=== PATIENT | female | born 1965 | race Caucasian/White ===

== ENCOUNTER 2021-02-05 18:15 | Emergency (ER) | payer BC, MEDICAID, OTHER ==
--- NOTE | 2021-02-05 21:09 | EDM.PDOC ---
ED HPI GENERAL MEDICAL PROBLEM - General Chief Complaint: Drug or Alcohol Abuse Stated Complaint: etoh Time Seen by Provider: 02/05/21 18:20 - History of Present Illness INITIAL COMMENTS - FREE TEXT/NARRATIVE: Pt comes in by ambulance with C/O dizziness that happened tonite. She tells me it has happened many times over the last 6 months or so. She was in [place] 2 weeks ago and ended up in the ER for this but nothing was found. She was seen last at [facility] and a ZIO patch was applied and labs were done. The episodes only last for a few seconds, but can happen 3-4 times a day, or not for a few days. She tells me she has been drinking alcohol today, and does on most days. No chest pain, SOB, or coughing. 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 Musculoskeletal History: Reports: Fracture Other Musculoskeletal History: Broke back 7 years ago, no surgery only back brace Neurological History: Reports: None Psychiatric History: Reports: Depression Other Psychiatric History: Takes Prozac Endocrine/Metabolic History: Reports: Other (See Below) Other Endocrine/Metabolic History: Hypoglycemia Hematologic History: Reports: None Immunologic History: Reports: None Oncologic (Cancer) History: Reports: None Dermatologic History: Reports: None - Past Surgical History Head Surgeries/Procedures: Reports: None HEENT Surgical History: Reports: None Cardiovascular Surgical History: Reports: Other (See Below) Other Cardiovascular Surgeries/Procedures: Cardiac Cath 3 years ago Respiratory Surgical History: Reports: None GI Surgical History: Reports: None, Appendectomy Female Surgical History: Reports: None Endocrine Surgical History: Reports: None Neurological Surgical History: Reports: None Musculoskeletal Surgical History: Reports: None Oncologic Surgical History: Reports: None Dermatological Surgical History: Reports: None Social & Family History - Tobacco Use Tobacco Use Status *Q: Never Tobacco User Second Hand Smoke Exposure: No - Caffeine Use Caffeine Use: Reports: Coffee Other Caffeine Use: couple cups a day - Alcohol Use Days Per Week of Alcohol Use: 7 Number of Drinks Per Day: 3 Total Drinks Per Week: 21 Date of Last Drink: 02/05/21 Time of Last Drink: 17:00 - Recreational Drug Use Recreational Drug Use: No ED ROS GENERAL - Review of Systems Review Of Systems: Comprehensive ROS is negative, except as noted in HPI. Neurological: Reports: Dizziness ED EXAM, GENERAL - Physical Exam Exam: See Below Eye Exam: Bilateral Eye: EOMI, PERRL #1 Interpretation EKG Date: 02/05/21 Time: 17:00 Rhythm: NSR (NSR at this time.) Course - Orders/Labs/Meds Orders: Active Orders 24 hr Category Date Time Status Chest 1V Frontal [CR] Stat Exams 02/05/21 18:56 Taken Labs: Laboratory Tests 02/05/21 02/05/21 02/05/21 Range/Units 18:56 18:56 19:00 WBC 4.7 (4.0-11.0) K/uL RBC 4.60 (3.80-5.80) M/uL Hgb 14.2 (11.5-16.5) g/dL Hct 43.0 (37.0-47.0) % MCV 94 (76-96) fL MCH 30.9 (27.0-32.0) pg MCHC 33.0 (31.0-35.0) g/dL RDW 13.2 (11.0-16.0) % Plt Count 287 (150-500) K/uL MPV 9.7 (6.0-10.0) fL Neut % (Auto) 57.3 (45.0-70.0) % Lymph % (Auto) 35.1 (20.0-40.0) % Swisher % (Auto) 5.1 (3.0-10.0) % Eos % (Auto) 1.9 (1.0-5.0) % Baso % (Auto) 0.6 H (0.0-0.5) % Neut # (Auto) 2.71 (2.00-7.50) K/uL Lymph # (Auto) 1.66 (1.50-4.00) K/uL Swisher # (Auto) 0.24 (0.20-0.80) K/uL Eos # (Auto) 0.09 (0.04-0.40) K/uL Baso # (Auto) 0.03 (0.02-0.10) K/uL Sodium 142 (136-145) mmol/L Potassium 3.6 (3.5-5.1) mmol/L Chloride 106 (98-107) mmol/L Carbon Dioxide 26.3 (21.0-32.0) mmol/L Anion Gap 13.3 (5.0-15.0) mmol/L BUN 10 D (8-26) mg/dL Creatinine 0.66 D (0.55-1.02) mg/dL Est Cr Clr Drug Dosing TNP Estimated GFR (MDRD) > 60 (>60) MLS/MIN BUN/Creatinine Ratio 15.2 (6-25) Glucose 91 (74-100) mg/dL Calcium 8.5 (8.5-10.1) mg/dL Total Bilirubin 0.2 D (0.0-1.0) mg/dL AST 17 (15-37) U/L ALT 30 (12-78) U/L Alkaline Phosphatase 49 (46-116) U/L Troponin I < 0.017 (0.000-0.060) ng/mL Total Protein 7.3 (6.4-8.2) g/dL Albumin 3.6 (3.4-5.0) g/dL Globulin 3.7 (2.2-4.2) g/dL Albumin/Globulin Ratio 1.0 (0.8-2.0) Urine Color Yellow Urine Appearance Clear (CLEAR) Urine pH 5.5 (5.0-8.0) Ur Specific Badger <= 1.005 (1.003-1.030) Urine Protein Negative (NEGATIVE) mg/dL Urine Glucose (UA) Negative (NEGATIVE) mg/dL Urine Ketones Negative (NEGATIVE) mg/dL Urine Occult Blood Negative (NEGATIVE) Urine Nitrite Negative (NEGATIVE) Urine Bilirubin Negative (NEGATIVE) Urine Urobilinogen 0.2 (0.2-1.0) E.U./dL Ur Leukocyte Esterase Small H (NEGATIVE) Urine RBC Not Reportable Urine WBC 0-5 H /HPF Ur Epithelial Cells Few /HPF Ethyl Alcohol 216.0 H (<3.0) mg/dL - Re-Assessments/Exams Free Text/Narrative Re-Assessment/Exam: 02/05/21 21:10 Labs are ok. ETOH is 216. While waiting for labs she had a short run of V-Tach for about 3-4 seconds on the monitor. She felt different and could not talk for just a couple seconds. EKG shows a NSR again. I did consult Dr Mcodnald, [place] [facility] from [facility]. She should follow up with her PCP for further workup. Her labs are nml, and she tells me her PCP did check her Thyroid last week with lab work. She needs to refrain from alcohol until this is resolved. She admits to daily alcohol use. Departure - Departure Time of Disposition: 21:10 Disposition: Home, Self-Care 01 Condition: Good Clinical Impression: Alcohol abuse Abnormal heart rhythm Qualifiers: Arrhythmia type: ventricular tachycardia Qualified Code(s): I47.2 - Ventricular tachycardia Referrals: PCP,None [Primary Care Provider] - Additional Instructions: I did consult Dr Mcdonald, [place] Operator from [facility]. Pt will follow up by phone tomorrow with her PCP at [facility]. She currently has a ZIO patch. This should have captured the V-Tach. She will need further workup scheduled, including an Echo. She is not to drink alcohol until this has been resolved. Sepsis Event Note (ED) - Evaluation Sepsis Screening Result: No Definite Risk - My Orders Last 24 Hours: My Active Orders 02/05/21 18:56 Chest 1V Frontal [CR] Stat - Assessment/Plan Last 24 Hours: My Active Orders 02/05/21 18:56 Chest 1V Frontal [CR] Stat
--- NOTE | 2021-02-06 09:57 | CR ---
Date of Service: 02/05/21 Clinical Data: dizziness. PORTABLE CHEST: No priors. The patient has taken a poor inspiration. The heart size is normal. There are minimal atelectatic changes in the left lung base. The lungs are otherwise clear. No pneumothorax. No pleural effusions. [id number] MTDD
== END 2021-02-05 21:00 | disposition home or self-care (01) ==
LOC: LB.ED 18:15
DX: F10.10 Alcohol abuse, uncomplicated (principal); I47.2 Ventricular tachycardia; Y90.7 Blood alcohol level of 200-239 mg/100 ml
CPT/HCPCS: 36415; 71045; 80053; 80307; 81001; 84484; 85025; 93005; 99284; A0425; A0429

== ENCOUNTER 2021-08-02 20:25 | Emergency (ER) | payer OTHER ==
[2021-08-02] MEDS ORDERED: Sodium Chloride 0.9% 1,000 ML IV ONE (20:36)
[2021-08-02] MEDS ORDERED: Sodium Chloride 0.9% 1,000 ML IV SCH (22:00)
[2021-08-02] MEDS ORDERED: Acetaminophen 325 MG Tab PO ONE (22:14)
[2021-08-02 23:43] VITALS: BP 120/67; PULSE 70
== END 2021-08-02 23:46 | disposition home or self-care (01) ==
LOC: LB.ED 20:25
DX: F10.129 Alcohol abuse with intoxication, unspecified (principal)
CPT/HCPCS: 36415; 80053; 80307; 85025; 93010; 96360; 96361; 99284; 99285; A9270; J7030; 93005; A0425; A0429

== ENCOUNTER 2022-10-02 21:03 | Emergency (ER) | payer MEDICAID ==
[2022-10-02] MEDS ORDERED: Sodium Chloride 0.9% 10 ML Syringe FLUSH PRN (21:37)
[2022-10-02 21:56] LABS: HEMATOCRIT 41.3 % (37.0-47.0); HEMOGLOBIN 13.6 g/dL (11.5-16.5); MEAN CORPUSCULAR HEMOGLOBIN 31.2 pg (27.0-32.0); MEAN CORPUSCULAR HGB CONC 32.9 g/dL (31.0-35.0); MEAN PLATELET VOLUME 10.3 fL (6.0-10.0); RED BLOOD CELL COUNT 4.36 M/uL (3.80-5.80); RED CELL DISTRIBUTION WIDTH 13.6 % (11.0-16.0); WHITE BLOOD CELL COUNT,WBC 4.9 K/uL (4.0-11.0)
[2022-10-02] MEDS ORDERED: Sodium Chloride 0.9% 1,000 ML IV SCH (22:15)
[2022-10-02 22:24] LABS: ANION GAP 14.9 mmol/L (5.0-15.0); BLOOD UREA NITROGEN,BUN 12 mg/dL (8-26); BUN/CREATININE RATIO 18.2 (6-25); CALCIUM 8.5 mg/dL (8.5-10.1); CARBON DIOXIDE,CO2 25.6 mmol/L (21.0-32.0); CHLORIDE,CL 107 mmol/L (98-107); CREATININE 0.66 mg/dL (0.55-1.02); ESTIMATED GFR 102 mL/min (>60); GLUCOSE RANDOM 101 mg/dL (74-100); MAGNESIUM 2.3 mg/dL (1.8-2.4); PHOSPHORUS 4.6 mg/dL (2.5-4.9); POTASSIUM,K 3.5 mmol/L (3.5-5.1); SODIUM,NA 144 mmol/L (136-145)
[2022-10-02 22:42] VITALS: BP 107/72; PULSE 54
[2022-10-02 22:45] LABS: TROPONIN I HIGH SENSITIVITY < 4.0 pg/ml (<=60.4)
== END 2022-10-03 00:13 | disposition home or self-care (01) ==
LOC: LB.ED 21:03
DX: I49.8 Other specified cardiac arrhythmias (principal); F17.210 Nicotine dependence, cigarettes, uncomplicated; Z79.82 Long term (current) use of aspirin; Z79.899 Other long term (current) drug therapy
CPT/HCPCS: 36415; 80048; 83735; 84100; 84484; 85027; 93005; 93010; 99283; 99284; A0425; A0429; J7030